=== PATIENT | female | born 1955 | race African-American/Black ===

== ENCOUNTER 2021-06-07 07:56 | Emergency (ER) | payer MEDICARE | END 2021-06-07 08:40 | disposition home or self-care (01) | LOC: CSHERS 07:56 | DX: G50.1 Atypical facial pain (principal); H61.21 Impacted cerumen, right ear; Z86.16 Personal history of COVID-19; Z79.82 Long term (current) use of aspirin; Z79.899 Other long term (current) drug therapy | CPT/HCPCS: 99283 ==

== ENCOUNTER 2022-06-11 17:20 | Emergency (ER) | payer OTHER ==
[2022-06-11] MEDS ORDERED: Ketorolac Tromethamine 30 MG/ML VIAL ONE (17:57)
== END 2022-06-11 18:59 | disposition home or self-care (01) ==
LOC: CSHERS 17:20
DX: J10.1 Influenza due to other identified influenza virus with other respiratory manifestations (principal); I10 Essential (primary) hypertension
CPT/HCPCS: 87804; 96372; 99284; J1885

== ENCOUNTER 2022-12-18 14:58 | Emergency (ER) | payer OTHER ==
[2022-12-18] MEDS ORDERED: predniSONE 20 MG TAB ONE (16:33)
== END 2022-12-18 16:40 | disposition home or self-care (01) ==
LOC: CSHERS 14:58
DX: R21 Rash and other nonspecific skin eruption (principal); I10 Essential (primary) hypertension
CPT/HCPCS: 99282; J7512

== ENCOUNTER 2023-02-28 07:47 | Emergency (ER) | payer OTHER | END 2023-02-28 09:22 | disposition home or self-care (01) | LOC: CSHERS 07:47 | DX: L03.115 Cellulitis of right lower limb (principal); Z79.82 Long term (current) use of aspirin | CPT/HCPCS: 99283 ==

== ENCOUNTER 2023-06-07 09:38 | Emergency (ER) | payer OTHER | END 2023-06-07 10:50 | disposition home or self-care (01) | LOC: CSHERS 09:38 | DX: M54.16 Radiculopathy, lumbar region (principal); I10 Essential (primary) hypertension; Z86.73 Personal history of transient ischemic attack (TIA), and cerebral infarction without residual deficits; Z79.82 Long term (current) use of aspirin | CPT/HCPCS: 99283 ==

== ENCOUNTER 2023-06-15 22:47 | Emergency (ER) | payer OTHER ==
[2023-06-16] MEDS ORDERED: Gabapentin 300 MG CAP ONE (00:15)
[2023-06-16] MEDS ORDERED: HYDROcodone/Acetaminophen 5/325 mg Tablet ONE (00:16)
== END 2023-06-16 00:35 | disposition home or self-care (01) ==
LOC: CSHERS 22:47
DX: G62.9 Polyneuropathy, unspecified (principal); I10 Essential (primary) hypertension
CPT/HCPCS: 99283

== ENCOUNTER 2023-06-29 16:01 | Outpatient (CLI) | payer OTHER | END 2023-06-29 16:02 | disposition home or self-care (01) | LOC: CSHRAD 16:01 | PROVIDERS: ATTEND Family Medicine | DX: M54.50 Low back pain, unspecified (principal); M51.86 Other intervertebral disc disorders, lumbar region | CPT/HCPCS: 72100 ==

== ENCOUNTER 2023-07-21 08:55 | Outpatient (CLI) | payer OTHER | END 2023-07-21 08:56 | disposition home or self-care (01) | LOC: CSHMAMMO 08:55 | PROVIDERS: ATTEND Family Medicine | DX: Z12.31 Encounter for screening mammogram for malignant neoplasm of breast (principal) | CPT/HCPCS: 77063; 77067 ==